=== PATIENT | female | born 1970 | race Hispanic/Latino ===

== ENCOUNTER → 2018-05-20 | Outpatient (CLI) | payer BC ==
[~2018-05-20] MED LIST: MEDROL4 MG/DOSE- PO
--- NOTE | 2018-05-20 15:43 | Diagnostic Imaging Report ---
#[id number] - MGSCRBIL #BILATERAL DIGITAL SCREENING MAMMOGRAM WITH CAD: 05/20/2018 CLINICAL: Routine screening. Comparison is made to exams dated: 05/29/2017 mammogram, 05/20/2016 mammogram and 05/24/2015 mammogram - [facility]. Current study contains 4 films. The tissue of both breasts is heterogeneously dense. This may lower the sensitivity of mammography. Current study was also evaluated with a Computer Aided Detection (CAD) system. There are benign calcifications in both breasts. No significant masses, calcifications, or other findings are seen in either breast. There has been no significant interval change. IMPRESSION: BENIGN There is no mammographic evidence of malignancy. A 1 year screening mammogram is recommended. The patient will be notified by letter of the results. Isra larson/nesha:05/20/2018 09:51:36 Transfer And Pumphouse Operator Chief: Gayle SUNG(R)(M), [facility] letter sent: Compared to Prior B9 Mammogram BI-RADS: 2 Benign
== END ==
LOC: MAMMO 07:52
PROVIDERS: ATTEND Obstetrics & Gynecology
DX: Z12.31 Encounter for screening mammogram for malignant neoplasm of breast (principal)
CPT/HCPCS: 77067

== ENCOUNTER 2018-09-21 20:58 | Observation (INO) | payer BC ==
[~2018-09-21] VITALS: Ht 167.6 cm; Wt 95.7 kg
--- OUTSIDE RECORDS SUMMARY | 2018-09-21 21:01 | XMS REPORT | Summary of Care ---
Author Author [facility] Organization [facility] Address Unknown Phone Unavailable Encounter ARGELIA Uribe(TASHIA) [id number] Date(s): 01/08/16 - 01/08/16 [facility] [address] [place] [address]- Discharge Diagnosis: Allergic urticaria Discharge Disposition: Home Attending Physician: Mariel Hill MD Vital Signs Most recent to 1 2 oldest [Reference Range]: Height 154.94 cm (01/08/16 7:48 AM) Temperature Oral 97.8 DegF 98.0 DegF [96.4-99.1 DegF] (01/08/16 9:54 AM) (01/08/16 7:48 AM) Blood Pressure 116/71 mmHg 128/72 mmHg [90-140/60-90 mmHg] (01/08/16 9:54 AM) (01/08/16 7:48 AM) Respiratory Rate 18 BRMIN 18 BRMIN [14-20 BRMIN] (01/08/16 9:54 AM) (01/08/16 7:48 AM) Peripheral Pulse 68 bpm 64 bpm Rate [60-100 bpm] (01/08/16 9:54 AM) (01/08/16 7:48 AM) Weight 90 kg (01/08/16 7:48 AM) Body Mass Index 37.49 m2 (01/08/16 7:48 AM) Problem List No data available for this section Allergies, Adverse Reactions, Alerts Substance Reaction Severity Status ibuprofen Active Medications EpiPen Auto-Injector 0.3 mg injectable kit 0.3 mg, IM, ONCE, # 1 pen(s), 0 Refill(s) Start Date: 01/08/16 Status: Ordered famotidine 20 mg, 2 mL, Route: IV, Drug form: INJ, ONCE, Dosing Weight 90, kg, Priority: ST AT, Start date: 01/08/16 8:04:00, Stop date: 01/08/16 8:04:00 Notes: (Same as: Pepcid)Can be dilute in 5-10cc NS IVP: Slow IV push over at le ast 2 minutes. Start Date: 01/08/16 Stop Date: 01/08/16 Status: Completed predniSONE 20 mg oral tablet 60 mg=3 tab, PO, Daily, Take 3 tablets for 60 mg dose, X 5 day, # 15 tab, 0 Refi ll(s) Start Date: 01/08/16 Stop Date: 01/13/16 Status: Ordered Solu-MEDROL 125 mg, 2 mL, Route: IVP, Drug form: INJ, ONCE, Dosing Weight 90, kg, Priority: STAT, Start date: 01/08/16 8:04:00, Stop date: 01/08/16 8:04:00 Notes: (Same as:Solu-MEDROL, A-Methapred) Start Date: 01/08/16 Stop Date: 01/08/16 Status: Completed Results No data available for this section Immunizations No data available for this section Procedures No data available for this section Social History Social History Type Response Smoking Status Never smoker; Exposure to Tobacco Smoke None; Cigarette Smoking Last 365 Days No; Reg Smoking Cessation Counseling No Assessment and Plan No data available for this section
--- OUTSIDE RECORDS SUMMARY | 2018-09-21 21:01 | XMS REPORT ---
[facility] Address Unknown Phone Unavailable Care Team Providers Care Oven Attendant Name Role Phone SHANKAR CONTEH Unavailable Unavailable Problems This patient has no known problems. Allergies, Adverse Reactions, Alerts This patient has no known allergies or adverse reactions. Medications This patient has no known medications. Results Test Description Test Time Test Comments Text Results Atomic Results Result Comments MAMMOGRAPHY DIGITAL SCR BILAT 2018-05-20 09:03:00 [place] [address] Patient Name: JACKI PEREIRA MR #: [id number] : 1970 Age/Sex: 48/F Req #: [id number] [facility] Physician: Ordered by: SHANKAR CONTEH MD Report #: [id number] Location: MAMMO Room/Bed: Procedure: MG/MAMMOGRAPHY DIGITAL SCR BILAT Exam Date: 05/20/18 Exam Time: 0845 REPORT STATUS: Signed #[id number] - MGSCRBIL #BILATERAL DIGITAL SCREENING MAMMOGRAM WITH CAD: 05/20/2018 CLINICAL: Routine screening. Comparison is made to exams dated: 05/29/2017 mammogram, 05/20/2016 mammogram and 05/24/2015 mammogram - [facility]. Current study contains 4 films. The tissue of both breasts is heterogeneously dense. This may lower the sensitivity of mammography. Current study was also evaluated with a Computer Aided Detection (CAD) system. There are benign calcifications in both breasts. No significant masses, calcifications, or other findings are seen in either breast. There has been no significant interval change. IMPRESSION: BENIGN There is no mammographic evidence of malignancy. A 1 year screening mammogram is recommended. The patient will be notified by letter of the results. Sylvain larson/sonal:05/20/2018 09:51:36 Mixing Machine Feeder: Gayle SUNG(R)(M), [facility] letter sent: Compared to Prior B9 Mammogram BI- RADS: 2 Benign Dictated By: SYLVAIN ACOSTA DO 0 Transcribed By: SONAL on 05/20/18950 COPY TO: SHANKAR CONTEH MD
--- OUTSIDE RECORDS SUMMARY | 2018-09-21 21:01 | XMS REPORT | Continuity of Care Document ---
Author Author [facility] Address Unknown Phone Unavailable Problems Problem Status Onset Date Classification Date Reported Comments Source Discharge Diagnosis: Allergic urticaria 01/08/2016 01/11/2016 [facility] ALLERGIC REACTION Active 01/08/2016 [facility] Medications Medication Details Route Status Patient Instructions Ordering Provider Order Date Source 0.3 ML Epinephrine 1 MG/ML Prefilled Syringe [Epipen] 0.3 mg, IM, ONCE, # 1 pen(s), 0 Refill(s) Active 01/08/2016 [facility] predniSONE 20 mg oral tablet 60 mg=3 tab, PO, Daily, Take 3 tablets for 60 mg dose, X 5 day, # 15 tab, 0 Refill(s) Active 01/08/2016 [facility] Famotidine 20 mg, 2 mL, Route: IV, Drug form: INJ, ONCE, Dosing Weight 90, kg, Priority: STAT, Start date: 01/08/16 8:04:00, Stop date: 01/08/16 8:04:00Notes: (Same as: Pepcid) Can be dilute in 5-10cc NS IVP: Slow IV push over at least 2 minutes. Inactive 01/08/2016 [facility] Solu-Medrol 125 mg, 2 mL, Route: IVP, Drug form: INJ, ONCE, Dosing Weight 90, kg, Priority: STAT, Start date: 01/08/16 8:04:00, Stop date: 01/08/16 8:04:00Notes: (Same as:Solu-MEDROL, A-Methapred) Inactive 01/08/2016 [facility] Allergies, Adverse Reactions, Alerts Substance Category Reaction Severity Reaction type Status Date Reported Comments Source ibuprofen Assertion Drug allergy Active [facility] Immunizations Immunization Date Given Site Status Last Updated Comments Source Results Order Name Results Value Reference Range Date Interpretation Comments Source Vital Signs Vital Sign Value Date Comments Source Temperature Oral (F) 97.8 F 01/08/2016 [facility] Respitory Rate 18 01/08/2016 [facility] Heart Rate 68 01/08/2016 [facility] Systolic (mm Hg) 116 01/08/2016 [facility] Diastolic (mm Hg) 71 01/08/2016 [facility] Heart Rate 64 01/08/2016 [facility] Temperature Oral (F) 98.0 F 01/08/2016 [facility] Height 154.94 cm 01/08/2016 [facility] Respitory Rate 18 01/08/2016 [facility] BMI Calculated 37.49 01/08/2016 [facility] Weight 90 01/08/2016 [facility] Systolic (mm Hg) 128 01/08/2016 [facility] Diastolic (mm Hg) 72 01/08/2016 [facility] Encounters Location Location Details Encounter Type Encounter Number Reason For Visit Attending Provider ADM Date DC Date Status Source [facility] [id number] Mariel Hill 01/08/2016 01/08/2016 [facility] Procedures Procedure Code Date Perfomer Comments Source
--- OUTSIDE RECORDS SUMMARY | 2018-09-21 21:01 | XMS REPORT ---
Author Author Admin, [place] Organization [facility] Address Unknown Phone Unavailable Allergies, Adverse Reactions, Alerts Allergy Name Reaction Description Start Date Severity Status Provider IBUPROFEN Rash Moderate Active Javier Forrester MD Conditions or Problems Problem Name Problem Code Onset Date Status Entry Date Provider Comment Standard Description Annotate Annual finish filer exam V72.3 Active Javier Forrester MD Special investigations and examinations - Gynecological examination Cervix, screening for malignant neoplasm V76.2 Active Javier Forrester MD Screening for malignant neoplasms of the cervix Mammogram not high risk screening V76.12 Active Javier Forrester MD Other screening mammogram Medication List Medication Instructions Start Date Stop Date Generic Name NDC Status Provider Patient Instruction No Drug Therapy Prescribed - none known did ask Katharine Osborne MA Vital Signs Date Name Value Unit Range Description blood pressure, diastolic 84 mm[Hg] BP gilbert blood pressure, systolic 138 mm[Hg] BP sys height E&M 62 [in_us] Bdy height pulse rate E&M 68 /min Heart rate respiratory rate E&M 16 /min Resp rate temperature E&M 99.2 [degF] Body temperature weight E&M 213.40 [lb_av] Weight Measured blood pressure, diastolic 86 mm[Hg] BP gilbert blood pressure, systolic 129 mm[Hg] BP sys height E&M 62 [in_us] Bdy height pulse rate E&M 82 /min Heart rate respiratory rate E&M 16 /min Resp rate temperature E&M 97.9 [degF] Body temperature weight E&M 215 [lb_av] Weight Measured Procedures Code Procedure Name Date Entry Date Standard Description CPT-33446 Est Patient Well Exam (40 - 64 Yrs) - 41518 13:20:44 CDT CPT-01708 New Patient Well Exam (40 - 64 Yrs) - 11260 10:05:31 CDT
[2018-09-21] MEDS ORDERED: FAMOTIDINE 20 MG/2 ML VIAL IV STA (21:04)
[2018-09-21] MEDS ORDERED: ONDANSETRON HCL INJ 2 MG/ML VIAL IV STA (21:11)
[2018-09-21] MEDS ORDERED: DEXAMETHASONE SOD PHOS 10 MG/1 ML VIAL IV NR (21:15)
[2018-09-21] MEDS ORDERED: EPINEPHRINE HCL INJ 1 MG/ML AMP INJ ONE (21:15)
[2018-09-21] MEDS ORDERED: EPINEPHRINE HCL INJ 1 MG/ML AMP IM ONE (21:15)
[2018-09-21] MEDS ORDERED: SODIUM CHLORIDE 0.9% 1000ML 1,000 ML IV SCH (22:44)
[2018-09-21] MEDS ORDERED: ONDANSETRON HCL INJ 2 MG/ML VIAL IV PRN (22:45)
[2018-09-21] MEDS ORDERED: SODIUM CHLORIDE 0.9% 1000ML 1,000 ML IV ONE (23:15)
[2018-09-22] VITALS (7 sets, daily range): BP systolic 112–132; BP diastolic 60–83
[2018-09-22] MEDS ORDERED: PREDNISONE 20 MG TAB PO SCH (09:00)
== END 2018-09-22 13:58 | disposition home or self-care (01) ==
LOC: FSED 20:58 → ERHOLD 22:44 → MED/SURG 23:43
DX: T63.421A Toxic effect of venom of ants, accidental (unintentional), initial encounter (principal); T78.2XXA Anaphylactic shock, unspecified, initial encounter; Z88.0 Allergy status to penicillin; Z91.038 Other insect allergy status
CPT/HCPCS: 99284; G0378 ×2; J0171; J2405; J7030; J7512

== ENCOUNTER → 2019-06-08 | Outpatient (CLI) | payer BC ==
--- NOTE | 2019-06-17 08:49 | Diagnostic Imaging Report ---
#[id number] - MGSCRBIL #BILATERAL DIGITAL SCREENING MAMMOGRAM WITH CAD: 06/08/2019 CLINICAL: Routine screening. Comparison is made to exams dated: 05/20/2018 mammogram and 05/29/2017 mammogram - [facility]. Current study contains 4 films. The tissue of both breasts is heterogeneously dense. This may lower the sensitivity of mammography. Current study was also evaluated with a Computer Aided Detection (CAD) system. There is benign, stable nodularity in the left breast. No significant masses, calcifications, or other findings are seen in either breast. IMPRESSION: BENIGN There is no mammographic evidence of malignancy. A 1 year screening mammogram is recommended. The patient will be notified by letter of the results. MODESTO GERONIMO M.D. ct/penrad:06/16/2019 12:34:13 Tile Shader: Gayle MALONE)(Nicholas), [facility] letter sent: Normal Exam Mammogram BI-RADS: 2 Benign
== END ==
LOC: MAMMO 08:01
PROVIDERS: ATTEND Obstetrics & Gynecology
DX: Z12.31 Encounter for screening mammogram for malignant neoplasm of breast (principal)
CPT/HCPCS: 77067

== ENCOUNTER → 2020-05-14 | Outpatient (CLI) | payer BC | LOC: MAMMO 09:36 | PROVIDERS: ATTEND Obstetrics & Gynecology | DX: Z12.31 Encounter for screening mammogram for malignant neoplasm of breast (principal) | CPT/HCPCS: 77067 ==

== ENCOUNTER → 2021-06-03 | Outpatient (CLI) | payer BC | LOC: MAMMO 08:43 | PROVIDERS: ATTEND Obstetrics & Gynecology | DX: Z12.31 Encounter for screening mammogram for malignant neoplasm of breast (principal) | CPT/HCPCS: 77067 ==

== ENCOUNTER → 2021-07-06 | Day surgery (SDC) | payer BC ==
[~2021-07-06] MED LIST changes: +BENADRYL25 M1 PO; +GLUCAGON FOR INJ 1 MG VIAL ONE; +HYOSCYAMINE SULFATE 0.5 MG/ML INJ ONE; +PROPOFOL IV EMULSION 10 MG/ML 20 ML VIAL ONE; +ZYRTEC-D TABLE1 EACH PO
[2021-07-06 14:30] VITALS: BP 141/86
== END | disposition home or self-care (01) ==
LOC: OR 10:20
PROVIDERS: ATTEND Internal Medicine Gastroenterology
DX: Z12.11 Encounter for screening for malignant neoplasm of colon (principal); D12.2 Benign neoplasm of ascending colon; K64.8 Other hemorrhoids; E66.01 Morbid (severe) obesity due to excess calories; N20.0 Calculus of kidney; I45.10 Unspecified right bundle-branch block; Z88.8 Allergy status to other drugs, medicaments and biological substances; Z01.810 Encounter for preprocedural cardiovascular examination; Z01.812 Encounter for preprocedural laboratory examination; Z20.822 Contact with and (suspected) exposure to COVID-19; Z68.41 Body mass index [BMI] 40.0-44.9, adult
CPT/HCPCS: 45384; 45385; 81025; 93005; J1610; J1980; J2704; U0002; 45378

== ENCOUNTER → 2022-05-21 | Outpatient (CLI) | payer BC ==
[~2022-05-21] MED LIST changes: -GLUCAGON FOR INJ 1 MG VIAL ONE; -HYOSCYAMINE SULFATE 0.5 MG/ML INJ ONE; -PROPOFOL IV EMULSION 10 MG/ML 20 ML VIAL ONE
== END ==
LOC: MAMMO 08:44
PROVIDERS: ATTEND Obstetrics & Gynecology
DX: Z12.31 Encounter for screening mammogram for malignant neoplasm of breast (principal)
CPT/HCPCS: 77067

== ENCOUNTER → 2023-05-22 | Outpatient (CLI) | payer BC | LOC: MAMMO 07:51 | PROVIDERS: ATTEND Family Medicine | DX: Z12.31 Encounter for screening mammogram for malignant neoplasm of breast (principal) | CPT/HCPCS: 77067 ==

== ENCOUNTER → 2024-10-21 | Outpatient (REF) | payer BC | LOC: MAMMO 13:11 | PROVIDERS: ATTEND Obstetrics & Gynecology | DX: Z12.31 Encounter for screening mammogram for malignant neoplasm of breast (principal) | CPT/HCPCS: 77067 ==